=== PATIENT | female | born 1975 | race Hispanic/Latino ===

== ENCOUNTER 2021-12-09 14:57 | Outpatient (CLI) | payer OTHER | END 2021-12-09 14:58 | disposition home or self-care (01) | LOC: BICMAMMO 14:57 | PROVIDERS: ATTEND Student in an Organized Health Care Education/Training Program | DX: Z12.31 Encounter for screening mammogram for malignant neoplasm of breast (principal); Z91.89 Other specified personal risk factors, not elsewhere classified | CPT/HCPCS: 77063; 77067 ==

== ENCOUNTER 2023-11-23 15:34 | Outpatient (CLI) | payer OTHER | END 2023-11-23 15:35 | disposition home or self-care (01) | LOC: BICMAMMO 15:34 | PROVIDERS: ATTEND Student in an Organized Health Care Education/Training Program | DX: Z12.31 Encounter for screening mammogram for malignant neoplasm of breast (principal); Z91.89 Other specified personal risk factors, not elsewhere classified | CPT/HCPCS: 77063; 77067 ==